=== PATIENT | female | born 1970 | race Caucasian/White ===

== ENCOUNTER 2024-03-11 02:07 | Emergency (ER) | payer OTHER, SELFPAY ==
[2024-03-11 02:13] VITALS: BP 134/88; PULSE 64; TEMP 36.6; O2SAT 97; BMI 28.9
--- NOTE | 2024-03-11 02:26 | CT_ITS ---
The [address] [address] Patient Name: TOÑITO QUEVEDO MRN: [id number] date: 1970 Sex: F Assigned Patient Location: ER Current Patient Location: Accession/Order Number: [id number] Exam Date: 03/11/2024 02:50 Report Date: 03/11/2024 06:05 At the request of: ALBERTO LOCKWOOD Procedure: CT abdomen pelvis wo con CLINICAL HISTORY: left flank pain. History of kidney stones. EXAMINATION: Unenhanced CT scan of the abdomen and pelvis: 03/11/2024. COMPARISON: Unenhanced CT scan of the abdomen and pelvis: 01/19/2022. TECHNIQUE: 3 mm axial images from lung bases through ischial tuberosities without intravenous or oral contrast were obtained. Sagittal, coronal reconstructions were performed. FINDINGS: Lung bases demonstrate no focal abnormalities. The heart size seems normal. CT ABDOMEN: The liver, spleen, gallbladder, pancreas, adrenal glands appear normal, except for some calculi in the gallbladder. There is no hydronephrosis or perinephric fat stranding involving the right kidney. There is a 3 mm nonobstructing calculus in the mid to lower pole of the right kidney. There are at least 3-4 calculi further inferiorly in the lower pole, largest of these calculi measures approximately 8 mm in size with average Hounsfield units of 574. There is a low-attenuation lesion in the midpole of the right kidney, measuring approximately 1.4 cm with average Hounsfield units of 11. There is no obvious ureterolithiasis. The left kidney has a calculus in the mid to lower pole, measuring approximately 6 mm in size. There are some additional less than 5 mm calculi slightly inferior to it. There is no hydronephrosis, perinephric fat stranding or obvious ureterolithiasis on the left. The abdominal aorta has normal caliber. There is no retroperitoneal or mesenteric adenopathy. No abnormally dilated loops of small or large bowel seen. There is a floppy cecum, with a normal-appearing appendix. CT PELVIS: Bladder, uterus, ovaries appear normal. There is no ureterolithiasis. There is no pelvic adenopathy. There are no focal fluid collections. The visualized osseous structures demonstrate degenerative disc disease with vacuum phenomena at L4-L5. CT/CT abdomen pelvis wo con IMPRESSION: 1. Bilateral nonobstructing renal calculi without obstructive uropathy with simple cyst in the right kidney. 2. Cholelithiasis but no acute cholecystitis. 3. Normal appendix. Electronically authenticated by: MAMTA REEVES Date: 03/11/2024 06:05
[2024-03-11 02:38] LABS: Basophils Percent Auto 0.4 % (0.2-2.0); Eosinophils Absolute Auto 0.2 10^3/uL (0.0-0.7); Hematocrit 38.6 % (36.0-48.0); Hemoglobin 12.9 g/dL (12.0-16.0); Immature Granulocytes Abs Auto 0.02 10^3/uL (0.00-0.03); Immature Granulocytes Pct Auto 0.3 % (0.0-0.5); Lymphocytes Absolute Auto 2.1 10^3/uL (1.2-3.8); Lymphocytes Percent Auto 28.1 % (20.5-60.0); Mean Corpuscular HGB Conc 33.4 g/dL (29.9-35.2); Mean Corpuscular Hemoglobin 31.1 pg (26.7-34.0); Mean Platelet Volume 9.7 fL (9.5-13.5); Monocytes Absolute Auto 0.9 10^3/uL (0.3-0.8); Monocytes Percent Auto 12.2 % (1.7-12.0); Neutrophils Absolute Auto 4.2 10^3/uL (1.4-6.5); Platelet Count 232 10^3/uL (150-450); Red Blood Count 4.15 10^6/uL (4.20-5.40); Red Cell Distribution Width 12.6 % (11.0-15.0); White Blood Count 7.6 10^3/uL (4.0-11.0)
[2024-03-11] MEDS: KETOROLAC TROMETHAMINE 30 MG/ML VIAL 15 MG IVP (02:39)
[2024-03-11] MEDS: 0.9 % SODIUM CHLORIDE 1,000 ML 999 ML IV (02:40)
[2024-03-11] MEDS: ONDANSETRON PF 4 MG/2 ML VIAL IV (02:40)
[2024-03-11 02:49] LABS: Bilirubin Urine NEGATIVE (NEGATIVE); Blood Urine NEGATIVE (NEGATIVE); Clarity Urine CLEAR (CLEAR); Color Urine LT. YELLOW (YELLOW); Glucose Urine UA NEGATIVE (NEGATIVE); Ketones Urine NEGATIVE (NEGATIVE); Leukocyte Esterase Urine SMALL (NEGATIVE); Nitrite Urine NEGATIVE (NEGATIVE); Protein Urine NEGATIVE (NEG/TRACE); Specific Gravity Urine <=1.005 (1.005-1.025); Urobilinogen Urine 0.2 EU/dL (0.2-1.0)
[2024-03-11 02:51] LABS: Anion Gap 11.2; BUN Creatinine Ratio 22.7; Calcium 8.4 mg/dL (8.5-10.1); Carbon Dioxide 25.9 mmol/L (21.0-32.0); Chloride 104 mmol/L (98-107); Estimated GFR (African America >60 (>=60); Estimated GFR (Non-African Ame >60 (>=60); Glucose 100 mg/dL (74-106); Potassium 4.1 mmol/L (3.5-5.1); Sodium 137 mmol/L (136-145)
[2024-03-11 02:52] LABS: Urine Microscopic Indicated YES
[2024-03-11 03:16] LABS: RBC Urine NONE SEEN #/HPF (0-2)
[2024-03-11 03:17] LABS: Bacteria Urine TRACE #/HPF (NONE SEEN); Cast Seen? NONE SEEN #/LPF (NONE SEEN); Crystals Seen? None Seen #/HPF (None Seen); Mucus Urine NONE SEEN (NONE SEEN); Squamous Epithelial Cell Urine FEW #/LPF (NONE/RARE)
[2024-03-11 03:19] LABS: Urine Culture Indicated YES
--- NOTE | 2024-03-11 06:19 | ED_ITS ---
HPI HPI - General Adult General Chief complaint: Back Pain/Injury Stated complaint: BACK PAIN Time Seen by Provider: 03/11/24 02:14 Source: patient Mode of arrival: walk-in Limitations: no limitations History of Present Illness HPI narrative: 53-year-old female to the emergency department with chief complaint of left- sided flank pain. Symptoms began today. She reports is similar to past kidney stones. She denies any fever, sweats, chills. Denies any dysuria, urgency, frequency, hematuria. No abdominal pain. She denies any numbness, weakness, tingling. No bowel bladder incontinence or retention. Denies . Related Data Previous Rx's ?Medication ?Instructions ?Recorded oxycodone-acetaminophen 5 mg-325 1 tab PO Q6H PRN pain #8 tabs 03/11/24 mg tablet (Percocet) Allergies Allergy/AdvReac Type Severity Reaction Status Date / Time Penicillins Allergy Intermediate Rash Verified 03/11/24 02:38 Opioid HPI Opioid Management Most Recent Opioid Data: Last Pain Scale 5 03/11/24 02:39 Last MAR Pain Assessment 03/11/24 02:39 Review of Systems ROS Status of ROS 10 or more systems reviewed and unremark able except as noted in history and below Exam Narrative Exam Narrative: VITALS: I have reviewed the triage vital signs. GENERAL: Well developed, well appearing adult in no acute distress. NEURO: Alert and oriented. Moves all extremities. Face is symmetric and expressive. EYES: PERRL. No scleral icterus or conjunctival injection. No discharge. HENT: Normocephalic, atraumatic. Hearing is grossly intact. Nares grossly patent and without discharge. Mucous membranes moist. NECK: No JVD. Patient moves neck without restriction. CARDIO: Rhythm regular. Normal rate. No murmur, rub, or gallop. Pulses equal bilaterally in the upper and lower extremity. No lower extremity edema. PULM: Lungs clear to auscultation in all canales. No wheezes, rales, or rhonchi. No conversational dyspnea. No splinting, stridor, or accessory muscle use. GI/: Abdomen is soft and non-tender. Normoactive bowel sounds. EXTREMITIES: Symmetric muscle bulk. No joint swelling. No clubbing, cyanosis, or deformity. SKIN: Warm and dry. Normal turgor. No rash or lesions appreciated. PSYCH: Mood, affect, and interaction is appropriate to the setting. Constitutional Vital Signs, click to edit/add: Last Vital Signs Temp 97.9 F 03/11/24 02:13 Pulse 64 03/11/24 02:13 Resp 18 03/11/24 02:13 BP 134/88 03/11/24 02:13 Pulse Ox 97 03/11/24 02:13 O2 Del Method Room Air 03/11/24 02:13 Course Vital Signs Vital signs: Vital Signs Temperature 97.9 F 03/11/24 02:13 Pulse Rate 64 03/11/24 02:13 Respiratory Rate 18 03/11/24 02:13 Blood Pressure 134/88 03/11/24 02:13 Pulse Oximetry 97 03/11/24 02:13 Oxygen Delivery Method Room Air 03/11/24 02:13 Temperature 97.9 F 03/11/24 02:13 Pulse Rate 64 03/11/24 02:13 Respiratory Rate 18 03/11/24 02:13 Blood Pressure 134/88 03/11/24 02:13 Pulse Oximetry 97 03/11/24 02:13 Oxygen Delivery Method Room Air 03/11/24 02:13 Medical Decision Making MDM Narrative Medical decision making narrative: Well-appearing 53-year-old female to the emergency department chief complaint of left flank pain consistent with past kidney stones. Vital stable, the patient is afebrile. Basic labs, urinalysis, CT scan abdomen pelvis without contrast ordered to evaluate for the cause of her symptoms. Toradol, Zofran, fluids or dered for symptom control. Lab work reviewed and noted. No major abnormalities. Urinalysis without major abnormality. Not convincing for infection. CT scan without acute findings. No kidney stone noted. Patient reexamined. Her symptoms remain well-controlled. Discussed findings with the patient. Discussed possibility of occult kidney stone, musculoskeletal pain, constipation. We discussed the diagnostic uncertainty. She will strain urine. She believes symptoms are classic kidney stone for her. As needed pain medication for home. She will follow-up with her doctor. Return precautions were discussed. All questions were answered. Patient was discharged home. Medical Records Medical records reviewed: Yes I reviewed the patient's medical records Lab Data Lab results reviewed: Yes I reviewed the patient's lab results Labs: Lab Results 09/02/24 09/02/24 Range/Units 02:30 02:31 WBC 7.6 (4.0-11.0) 10^3/uL RBC 4.15 L (4.20-5.40) 10^6/uL Hgb 12.9 (12.0-16.0) g/dL Hct 38.6 (36.0-48.0) % MCV 93.0 (81.0-99.0) fL MCH 31.1 (26.7-34.0) pg MCHC 33.4 (29.9-35.2) g/dL RDW 12.6 (11.0-15.0) % Plt Count 232 (150-450) 10^3/uL MPV 9.7 (9.5-13.5) fL Neut % (Auto) 56.0 (43.0-75.0) % Lymph % (Auto) 28.1 (20.5-60.0) % [place] % (Auto) 12.2 H (1.7-12.0) % Eos % (Auto) 3.0 (0.9-7.0) % Baso % (Auto) 0.4 (0.2-2.0) % Neut # (Auto) 4.2 (1.4-6.5) 10^3/uL Lymph # (Auto) 2.1 (1.2-3.8) 10^3/uL [place] # (Auto) 0.9 H (0.3-0.8) 10^3/uL Eos # (Auto) 0.2 (0.0-0.7) 10^3/uL Baso # (Auto) 0.0 (0.0-0.1) 10^3/uL Abs Immat Gran (auto) 0.02 (0.00-0.03) 10^3/uL Imm/Tot Granulo (auto) 0.3 (0.0-0.5) % Sodium 137 (136-145) mmol/L Potassium 4.1 (3.5-5.1) mmol/L Chloride 104 (98-107) mmol/L Carbon Dioxide 25.9 (21.0-32.0) mmol/L Anion Gap 11.2 BUN 17.0 (7.0-18.0) mg/dL Creatinine 0.75 (0.55-1.02) mg/dL Est GFR ( Amer) >60 (>=60) Est GFR (Non-Af Amer) >60 (>=60) BUN/Creatinine Ratio 22.7 Glucose 100 (74-106) mg/dL Calcium 8.4 L (8.5-10.1) mg/dL Urine Color Lt. yellow (YELLOW) Urine Clarity Clear (CLEAR) Urine pH 6.0 (5.0-9.0) Ur Specific [place] <=1.005 A (1.005-1.025) Urine Protein Negative (NEG/TRACE) mg/dL Urine Glucose (UA) Negative (NEGATIVE) mg/dL Urine Ketones Negative (NEGATIVE) mg/dL Urine Occult Blood Negative (NEGATIVE) Urine Nitrite Negative (NEGATIVE) Urine Bilirubin Negative (NEGATIVE) Urine Urobilinogen 0.2 (0.2-1.0) EU/dL Ur Leukocyte Esterase Small A (NEGATIVE) Urine RBC None seen (0-2) #/HPF Urine WBC 5-10 A (NONE SEEN) #/HPF Ur Squamous Epith Cells Few A (NONE/RARE) #/LPF Urine Crystals None seen (None Seen) #/HPF Urine Bacteria Trace A (NONE SEEN) #/HPF Urine Casts None seen (NONE SEEN) #/LPF Urine Mucus None seen (NONE SEEN) Ur Culture Indicated? Yes Imaging Data CT scan - abdomen: Attestation: I have reviewed the pertinent imaging results. Radiologist's impression: ITS Impressions Abdomen/Pelvis CT 03/11/24 02:26 IMPRESSION: 1. Bilateral nonobstructing renal calculi without obstructive uropathy with simple cyst in the right kidney. 2. Cholelithiasis but no acute cholecystitis. 3. Normal appendix. Electronically authenticated by: MAMTA REEVES Date: 03/11/2024 06:05 Discharge Plan Discharge Stand Alone Forms: Portal Instructions Chief Complaint: Back Pain/Injury Clinical Impression: Acute flank pain Patient Disposition: Home, Self-Care Time of Disposition Decision: 06:11 Condition: Good Mode of Transportation: Private Vehicle Prescriptions / Home Meds: New oxycodone-acetaminophen [Percocet] 5-325 mg tablet 1 tab PO Q6H PRN (Reason: pain) Qty: 8 0RF Print Language: Indonesian Instructions: Flank Pain (ED), Opioid Safety (ED) Additional Instructions: Call the office of your primary care doctor to arrange for follow-up within the above-stated timeframe. Your ED visit was focused on your acute issue and does not replace primary care. You should review your labs, imaging, and diagnoses from this ED visit with your primary care physician. There may be non-emergent/ incidental findings that need further evaluation. You should review your vital signs including blood pressure with your PCP. If you were prescribed medications you should discuss possible side-effects and drug interactions with your pharmacist. Call 911 or go to the nearest Emergency Department if you develop any new or worsening symptoms. Seek immediate medical attention if you develop: worsening abdominal pain, new or worsening nausea, new or worsening vomiting, new or worsening diarrhea, chest pain, shortness of breath, pain with urination, problems urinating, fever, chills, weakness, or any new or worsening symptoms. Referrals: Gay Beckford MD [Primary Care Provider] - 1 week
[2024-03-11] MEDS: OXYCODONE HCL/ACETAMINOPHEN 5MG/325MG 2 TAB PO (06:31)
[2024-03-11 06:39] VITALS: BP 113/75; PULSE 80; TEMP 36.8; O2SAT 100
== END 2024-03-11 06:54 | disposition home or self-care (01) ==
PROVIDERS: Emergency Provider Student in an Organized Health Care Education/Training Program; PCP Family Medicine
DX: R10.9 Unspecified abdominal pain (principal); Z87.442 Personal history of urinary calculi
CPT/HCPCS: 36415; 74176; 80048; 81001; 85025; 87086; 96374; 96375; 99284; J1885; J2405